=== PATIENT | female | born 1955 | race Caucasian/White ===

== ENCOUNTER 2016-05-05 08:27 | Day surgery (SDC) | payer OTHER ==
[2016-05-05] MEDS ORDERED: DEXTROSE 5%-LACTATED RINGERS 1,000 ML IV ONE ×2 (09:36→10:01)
[2016-05-05] MEDS ORDERED: fentaNYL 250 MCG/5 ML VIAL IVP ONE (09:40)
[2016-05-05] MEDS ORDERED: MIDAZOLAM 2 MG/2 ML VIAL IVP ONE (09:40)
== END 2016-05-05 08:28 | disposition home or self-care (01) ==
PROC: 0DJD8ZZ Inspection of Lower Intestinal Tract, Via Natural or Artificial Opening Endoscopic (ICD-10-PCS; principal; 2016-05-05 10:50)
DX: Z12.11 Encounter for screening for malignant neoplasm of colon (principal); K57.30 Diverticulosis of large intestine without perforation or abscess without bleeding; K64.8 Other hemorrhoids

== ENCOUNTER 2016-05-18 11:21 | Outpatient (CLI) | payer OTHER | END 2016-05-18 11:22 | disposition home or self-care (01) | DX: N28.9 Disorder of kidney and ureter, unspecified (principal) ==

== ENCOUNTER 2017-05-09 08:00 | Outpatient (CLI) | payer OTHER ==
[2017-05-09 12:59] LABS: BASOPHILS % (AUTO) 0.9 %; EOSINOPHILS # (AUTO) 0.8 10^3/uL (0.0-0.7); EOSINOPHILS % (AUTO) 18.5 %; LYMPHOCYTES # (AUTO) 1.1 10^3/uL (1.5-3.5); LYMPHOCYTES % (AUTO) 26.3 %; MEAN CORPUSCULAR HEMOGLOBIN 34.9 pg (27.0-31.0); MEAN CORPUSCULAR HGB CONC 34.6 g/dL (32.0-36.0); MONOCYTES # (AUTO) 0.4 10^3/uL (0.0-1.0); NEUTROPHILS # (AUTO) 1.8 10^3/uL (1.5-6.6); NEUTROPHILS % (AUTO) 44.3 %; PLT - PLATELET COUNT 242 10^3/uL (130-450); RED BLOOD COUNT 3.15 10^6/uL (4.20-5.40); RED CELL DISTRIBUTION WIDTH 14.1 % (12.0-15.0); WHITE BLOOD COUNT 4.2 x10^3/uL (4.8-10.8)
[2017-05-09 13:19] LABS: ALBUMIN 3.8 g/dL (3.2-5.5); ALBUMIN/GLOBULIN RATIO 1.3 (1.0-2.2); ALKALINE PHOSPHATASE 55 IU/L (42-121); ALT ALANINE AMINOTRANSFERASE 12 IU/L (10-60); AST ASPARTATE AMINOTRANSFERASE 25 IU/L (10-42); BILIRUBIN,TOTAL 0.8 mg/dL (0.2-1.0); BUN - BLOOD UREA NITROGEN 17 mg/dL (6-20); CALCIUM 8.6 mg/dL (8.5-10.3); CARBON DIOXIDE - CO2 25 mmol/L (21-32); CHLORIDE 98 mmol/L (101-111); CHOL/HDL RATIO 2.2 (<4.4); CHOLESTEROL 222 mg/dL; CREATININE 1.1 mg/dL (0.4-1.0); GFR - MDRD 50 (>89); GLUCOSE 78 mg/dL (70-100); HDL CHOLESTEROL 102 mg/dL; LDL CHOLESTEROL,CALCULATED 105 mg/dL; SODIUM 130 mmol/L (135-145); TOTAL PROTEIN 6.7 g/dL (6.7-8.2); VLDL CHOLESTEROL 15 mg/dL
[2017-05-09 13:51] LABS: HB2 TOTAL 11.5 g/dL; HEMOGLOBIN A1C 0.35 g/dL; HEMOGLOBIN A1C % 4.9 % (4.6-6.2)
== END 2017-05-09 08:01 | disposition home or self-care (01) ==
LOC: LAB.WCP 08:00
PROVIDERS: ATTEND Family Medicine
DX: N28.9 Disorder of kidney and ureter, unspecified (principal); E03.9 Hypothyroidism, unspecified; E11.9 Type 2 diabetes mellitus without complications; I10 Essential (primary) hypertension
CPT/HCPCS: 36415; 80053; 80061; 82043; 83036; 83721; 84443; 85025

== ENCOUNTER 2017-06-30 10:55 | Outpatient (CLI) | payer OTHER ==
--- NOTE | 2017-07-03 13:00 | Mammography Report ---
DIGITAL SCREENING MAMMOGRAM: 06/30/2017 CLINICAL INDICATION: A 61-year-old for screening. COMPARISON: 03/2016, 01/2015, 04/2013, 11/2010, 10/2009. TECHNIQUE: Routine CC and MLO projections were obtained of the breasts. FINDINGS: Parenchymal tissue within the breasts is predominantly fatty replaced. There are no dominant masses, suspicious microcalcifications, or secondary signs of malignancy. In comparison to the previous studies, there are no significant changes. IMPRESSION: NO MAMMOGRAPHIC EVIDENCE OF MALIGNANCY. NO SIGNIFICANT INTERVAL CHANGES. RECOMMENDATION: Screening mammography is recommended annually. BIRADS CATEGORY 1 - NEGATIVE. STANDARD QUALIFYING STATEMENTS: 1. This examination was reviewed with the aid of Computed-Aided Detection (CAD). 2. A negative or benign imaging report should not delay biopsy if clinically suspicious findings are present. Consider surgical consultation if warranted. More than 5% of cancers are not identified by imaging. 3. Dense breasts may obscure an underlying neoplasm. TD: 07/03/2017 12:59
== END 2017-06-30 10:56 | disposition home or self-care (01) ==
LOC: DI.N 10:55
PROVIDERS: ATTEND Family Medicine
DX: Z12.31 Encounter for screening mammogram for malignant neoplasm of breast (principal)
CPT/HCPCS: 77067

== ENCOUNTER 2018-08-03 08:00 | Outpatient (CLI) | payer OTHER ==
[2018-08-03 18:22] LABS: BASOPHILS % (AUTO) 0.8 %; EOSINOPHILS # (AUTO) 0.4 10^3/uL (0.0-0.7); EOSINOPHILS % (AUTO) 9.7 %; LYMPHOCYTES # (AUTO) 0.9 10^3/uL (1.5-3.5); LYMPHOCYTES % (AUTO) 24.2 %; MEAN CORPUSCULAR HEMOGLOBIN 32.5 pg (27.0-31.0); MEAN CORPUSCULAR HGB CONC 33.1 g/dL (32.0-36.0); MEAN CORPUSCULAR VOLUME 98.1 fL (81.0-99.0); MEAN PLATELET VOLUME 8.8 fL (7.9-10.8); MONOCYTES # (AUTO) 0.3 10^3/uL (0.0-1.0); MONOCYTES % (AUTO) 8.7 %; NEUTROPHILS # (AUTO) 2.1 10^3/uL (1.5-6.6); NEUTROPHILS % (AUTO) 56.6 %; PLT - PLATELET COUNT 234 10^3/uL (130-450); RED BLOOD COUNT 3.38 10^6/uL (4.20-5.40); RED CELL DISTRIBUTION WIDTH 14.4 % (12.0-15.0); WHITE BLOOD COUNT 3.8 x10^3/uL (4.8-10.8)
[2018-08-03 19:07] LABS: % IRON SATURATION 35 % (20-50); ALBUMIN/GLOBULIN RATIO 1.4 (1.0-2.2); ALKALINE PHOSPHATASE 57 IU/L (42-121); ALT ALANINE AMINOTRANSFERASE 13 IU/L (10-60); AST ASPARTATE AMINOTRANSFERASE 22 IU/L (10-42); BILIRUBIN,TOTAL 0.6 mg/dL (0.2-1.0); BUN - BLOOD UREA NITROGEN 31 mg/dL (6-20); CALCIUM 8.7 mg/dL (8.5-10.3); CARBON DIOXIDE - CO2 23 mmol/L (21-32); CHLORIDE 100 mmol/L (101-111); CHOLESTEROL 280 mg/dL; CREATININE 1.1 mg/dL (0.4-1.0); GFR - MDRD 50 (>89); GLUCOSE 94 mg/dL (70-100); HDL CHOLESTEROL 109 mg/dL; IRON 99 ug/dL (28-170); LDL CHOLESTEROL,CALCULATED 146 mg/dL; LDL/HDL RATIO 1.3 (<4.4); SODIUM 131 mmol/L (135-145); TOTAL IRON BINDING CAPACITY 286 ug/dL (250-450); TOTAL PROTEIN 6.9 g/dL (6.7-8.2); TRANSFERRIN 204 mg/dL (192-382); VLDL CHOLESTEROL 25 mg/dL
[2018-08-03 19:08] LABS: CHOL/HDL RATIO 2.6 (<4.4)
== END 2018-08-03 23:59 | disposition home or self-care (01) ==
LOC: LAB.N 08:00
DX: E78.5 Hyperlipidemia, unspecified (principal); D64.9 Anemia, unspecified; I10 Essential (primary) hypertension
CPT/HCPCS: 36415; 80053; 80061; 82607; 82728; 83540; 83721; 84443; 84466; 85025

== ENCOUNTER 2019-02-09 10:20 | Emergency (ER) | payer MEDICARE, OTHER ==
--- NOTE | 2019-02-09 11:24 | XRAY Report ---
Reason: fall Procedure Date: 02/09/2019 Accession Number: [id number] / [id number] Procedure: XR - Ankle 3 View RT CPT Code: Final Report FULL RESULT: EXAM: RIGHT ANKLE RADIOGRAPHY EXAM DATE: 02/09/2019 10:55 AM. CLINICAL HISTORY: Fall. COMPARISON: None. TECHNIQUE: 3 views. FINDINGS: Bones: Transverse lucency at the tip of the right fifth metatarsal tuberosity is noted. Additional lucency noted at the lateral margin of the calcaneus seen only on one image may represent a second fracture. Joints: Normal. No effusion. No subluxations. The ankle mortise is normally aligned. Soft Tissues: Moderate right ankle swelling. IMPRESSION: 1. Transverse myelitis based fracture at the tip of the right fifth metatarsal tuberosity. Possible mildly displaced fracture of the lateral calcaneus. 2. Normal alignment. 3. Moderate right ankle swelling. RADIA
--- NOTE | 2019-02-09 12:10 | ED Physician Documentation ---
PD HPI LOWER EXT INJURY - Stated complaint Stated Complaint: ANKLE/FT PX - Chief complaint Chief Complaint: Ext Problem - History obtained from History obtained from: Patient - History of Present Illness PD HPI LOW EXT INJURY LOCATION: Both (She had a step wrong last night and fell and inverted her right ankle. The right foot hurts the most but she is also having mild pain of the left foot and ankle. 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 : None HEENT: None Psych: Depression Musculoskeletal: None Derm: None - Past Surgical History Past Surgical History: Yes General: Gastric surgery Ortho: Other - Present Medications Home Medications: Ambulatory Orders Medication Instructions Recorded Confirmed Aspirin [Aspir 81] 81 mg PO DAILY 09/28/14 05/05/16 Levothyroxine [Synthroid] 75 mcg PO DAILY 09/28/14 05/05/16 Lisinopril 40 mg PO DAILY 09/28/14 05/05/16 Citalopram [CeleXA] 20 mg PO DAILY 05/04/16 05/04/16 - Allergies Allergies/Adverse Reactions: Allergies Allergy/AdvReac Type Severity Reaction Status Date / Time latex Allergy Respiratory Verified 02/09/19 10:26 zolpidem tartrate * Allergy Rash Verified 02/09/19 10:26 [From Ambien] bandaides Allergy Rash Uncoded 05/05/16 09:29 flu shot AdvReac Dizziness Uncoded 05/05/16 09:29 - Social History Does the pt smoke?: No Smoking Status: Never smoker Does the pt drink ETOH?: Yes Does the pt have substance abuse?: No - Immunizations Immunizations are current?: Yes - POLST Patient has POLST: No PD ED PE NORMAL - Vitals Vital signs reviewed: Yes - General General: Alert and oriented X 3, No acute distress - Extremities Extremities: Other (So the left ankle is actually more swollen and ecchymotic than the right although she has more pain on the right. She is tender over both malleoli on the left and less so the talar dome and fifth metatarsal on the left. She is severely tender over the proximal fifth metatarsal on the right. Noting the x-ray of the right she has absolutely no calcaneal tenderness on the right.) Results - Vitals Vitals: Vital Signs - 24 hr 02/09/19 02/09/19 10:24 12:55 Temperature 36.7 C 36.4 C L Heart Rate 61 59 L Respiratory 20 18 Rate Blood Pressure 127/60 138/71 H O2 Saturation 95 100 Oxygen O2 Source Room air - Rads (name of study) R ankle 3v Radiology: EMP read contemporaneously (There is a little chip fracture of the proximal right fifth metatarsal tuberosity, the radiologist felt there was a possible fracture of the lateral calcaneus but she has absolutely no tenderness here.) L ankle/foot Radiology: EMP read contemporaneously (Possible nondisplaced fracture of the lateral calcaneus, no TTP there) PD MEDICAL DECISION MAKING - ED course ED course: Radiologist reads noted, she has absolutely no tenderness of either calcaneus. She is placed in a boot on the right, did notneed anything on the left. She will use a walker she has at home pending ortho f/u Departure - Departure Disposition: 01 Home, Self Care Clinical Impression: Nondisplaced fracture of fifth right metatarsal bone Qualifiers: Encounter type: initial encounter Fracture type: closed Qualified Code(s): S92.354A - Nondisplaced fracture of fifth metatarsal bone, right foot, initial encounter for closed fracture Closed fracture of left distal fibula Qualifiers: Encounter type: initial encounter Fracture morphology: other fracture Qualified Code(s): S82.832A - Other fracture of upper and lower end of left fibula, initial encounter for closed fracture Condition: Good Record reviewed to determine appropriate education?: Yes Instructions: ED Fx Lower Ext Follow-Up: [facility] [Provider Group] - Within 1 week Comments: As discussed, the radiologist agreed that you have a nondisplaced fracture of the proximal fifth right metatarsal. Wear the boot on that side for this, you can walk and bear weight as tolerated. You should follow-up with the orthopedic surgeon in a week. Radiologist wondered if he might have a calcaneal fracture, but he has absolutely no tenderness of the right calcaneus. There is also a possibility of a tiny fracture of the left lateral calcaneus; you have no tenderness there either. Given that the fracture on the right seems to be bothering you more I think it is okay to walk and bear weight using the walker you have at home and follow-up with orthopedic surgeon in a week. Return for new worsening symptoms. Tylenol as needed for pain. Discharge Date/Time: 02/09/19 13:29
[2019-02-09 12:56] VITALS: BP 138/71
--- NOTE | 2019-02-09 13:06 | XRAY Report ---
Reason: foot ankle inj Procedure Date: 02/09/2019 Accession Number: [id number] / [id number] Procedure: XR - Foot 3 View LT CPT Code: Final Report FULL RESULT: EXAM: LEFT FOOT RADIOGRAPHY EXAM DATE: 02/09/2019 12:32 PM. CLINICAL HISTORY: Foot ankle inj. COMPARISON: ANKLE 3 VIEW LT 02/09/2019 12:25 PM. TECHNIQUE: 3 views. FINDINGS: Bones: Normal. No fractures or bone lesions. Joints: Normal. No subluxations. Soft Tissues: Mild to moderate left mid foot and ankle swelling. IMPRESSION: 1. No fracture or malalignment. 2. Mild to moderate left foot and ankle swelling. 3. If patient remains symptomatic, recommend follow up in 10-14 days. RADIA
--- NOTE | 2019-02-09 13:09 | XRAY Report ---
Reason: foot ankle inj Procedure Date: 02/09/2019 Accession Number: [id number] / [id number] Procedure: XR - Ankle 3 View LT CPT Code: Final Report FULL RESULT: EXAM: LEFT ANKLE RADIOGRAPHY EXAM DATE: 02/09/2019 12:31 PM. CLINICAL HISTORY: Foot ankle inj. COMPARISON: ANKLE 3 VIEW RT 02/09/2019 10:53 AM. TECHNIQUE: 3 views. FINDINGS: Bones: Plantar and Achilles tendon heel spur. Osteopenia. 5 mm linear bony density adjacent to the lateral calcaneus Joints: Osteophyte lateral joint space. No effusion. No subluxations. The ankle mortise is normally aligned. Soft Tissues: Soft tissue swelling. IMPRESSION: Possible fracture lateral calcaneus RADIA
== END 2019-02-09 13:29 | disposition home or self-care (01) ==
LOC: ED 10:20
DX: S92.354A Nondisplaced fracture of fifth metatarsal bone, right foot, initial encounter for closed fracture (principal); X50.1XXA Overexertion from prolonged static or awkward postures, initial encounter; I10 Essential (primary) hypertension; E11.9 Type 2 diabetes mellitus without complications; E03.9 Hypothyroidism, unspecified
CPT/HCPCS: 99282; 99283

== ENCOUNTER 2020-02-06 15:21 | Outpatient (CLI) | payer MEDICARE, OTHER ==
--- NOTE | 2020-02-13 12:23 | Mammography Report ---
BILATERAL DIGITAL SCREENING MAMMOGRAM 3D/2D: 02/06/2020 CLINICAL: Routine screening. Comparison is made to exams dated: 06/30/2017 mammogram, 01/28/2016 mammogram, 01/20/2015 mammogram, 04/24/2013 mammogram, 11/16/2010 mammogram, and 10/23/2009 mammogram - [facility]. The tissue of both breasts is predominantly fatty. There are benign vascular calcifications in both breasts. No significant masses, calcifications, or other findings are seen in either breast. There has been no significant interval change. IMPRESSION: BENIGN There is no mammographic evidence of malignancy. A 1 year screening mammogram is recommended. This exam was interpreted at Station ID: [id number]. NOTE: For mammograms, a report in lay terms will be sent to the patient. Approximately 15% of breast malignancies will not be visualized mammographically. In the management of a palpable breast mass, a negative mammogram must not discourage biopsy of a clinically suspicious lesion. Electronically Signed By: Galo Sequeira M.D. [facility] [place]:02/13/2020 12:16:39 ACR BI-RADS Category 2: Benign Finding(s) 3342F PARENCHYMAL PATTERN: (F) - The breast(s) demonstrate(s) diffuse fatty replacement. BI-RADS CATEGORY: (2) - 2 RECOMMENDATION: (ANNUAL) - Recommend routine annual screening mammography. [id number] 1 year screening LATERALITY: (B)
== END 2020-02-06 15:22 | disposition home or self-care (01) ==
LOC: DI.N 15:21
DX: Z12.31 Encounter for screening mammogram for malignant neoplasm of breast (principal)
CPT/HCPCS: 77063; 77067

== ENCOUNTER 2020-07-08 08:00 | Outpatient (CLI) | payer MEDICARE, OTHER ==
[2020-07-08 18:14] LABS: BASOPHILS % (AUTO) 0.7 %; EOSINOPHILS # (AUTO) 0.5 10^3/uL (0.0-0.7); EOSINOPHILS % (AUTO) 10.8 %; HGB - HEMOGLOBIN 12.9 g/dL (12.0-16.0); LYMPHOCYTES # (AUTO) 0.9 10^3/uL (1.5-3.5); MEAN CORPUSCULAR HEMOGLOBIN 32.9 pg (27.0-31.0); MEAN CORPUSCULAR HGB CONC 32.3 g/dL (32.0-36.0); MEAN PLATELET VOLUME 10.3 fL (7.9-10.8); MONOCYTES # (AUTO) 0.4 10^3/uL (0.0-1.0); MONOCYTES % (AUTO) 9.8 %; NEUTROPHILS # (AUTO) 2.4 10^3/uL (1.5-6.6); NEUTROPHILS % (AUTO) 56.5 %; PLT - PLATELET COUNT 261 10^3/uL (130-450); RED BLOOD COUNT 3.92 10^6/uL (4.20-5.40); RED CELL DISTRIBUTION WIDTH 12.4 % (12.0-15.0); WHITE BLOOD COUNT 4.2 x10^3/uL (4.8-10.8)
[2020-07-08 18:54] LABS: THYROID STIMULATING HORMONE 10.5 uIU/mL (0.34-5.60)
[2020-07-08 18:57] LABS: % IRON SATURATION 37 % (20-50); ALBUMIN 3.9 g/dL (3.2-5.5); ALBUMIN/GLOBULIN RATIO 1.3 (1.0-2.2); ALKALINE PHOSPHATASE 68 IU/L (42-121); ALT ALANINE AMINOTRANSFERASE 13 IU/L (10-60); AST ASPARTATE AMINOTRANSFERASE 24 IU/L (10-42); BILIRUBIN,TOTAL 0.8 mg/dL (0.2-1.0); BUN - BLOOD UREA NITROGEN 23 mg/dL (6-20); CALCIUM 9.3 mg/dL (8.5-10.3); CARBON DIOXIDE - CO2 27 mmol/L (21-32); CHLORIDE 101 mmol/L (101-111); CHOL/HDL RATIO 2.4 (<4.4); CHOLESTEROL 247 mg/dL; CREATININE 1.1 mg/dL (0.4-1.0); GFR - MDRD 50 (>89); GLUCOSE 103 mg/dL (70-100); HDL CHOLESTEROL 105 mg/dL; IRON 119 ug/dL (28-170); LDL CHOLESTEROL,CALCULATED 123 mg/dL; LDL/HDL RATIO 1.2 (<4.4); POTASSIUM 4.1 mmol/L (3.5-5.0); SODIUM 135 mmol/L (135-145); TOTAL IRON BINDING CAPACITY 321 ug/dL (250-450); TOTAL PROTEIN 6.8 g/dL (6.7-8.2); TRANSFERRIN 229 mg/dL (192-382); TRIGLYCERIDES 96 mg/dL; VLDL CHOLESTEROL 19 mg/dL
[2020-07-08 19:01] LABS: FERRITIN 101.8 ng/mL (11.0-306.8)
[2020-07-08 19:05] LABS: FOLATE 6.71 ng/mL (5.90 - >24.8)
[2020-07-08 20:13] LABS: FREE T4 (FREE THYROXINE) 0.64 ng/dL (0.58-1.64)
[2020-07-09 11:52] LABS: HEPATITIS C ANTIBODY NON-REACTIVE (NON-REACTIVE)
== END 2020-07-08 23:59 | disposition home or self-care (01) ==
LOC: LAB.WCP 08:00
PROVIDERS: ATTEND Family Medicine
DX: Z01.84 Encounter for antibody response examination (principal); I10 Essential (primary) hypertension; E78.5 Hyperlipidemia, unspecified; D64.9 Anemia, unspecified; E03.9 Hypothyroidism, unspecified
CPT/HCPCS: 36415; 80053; 80061; 82607; 82728; 82746; 83540; 83721; 84439; 84443; 84466; 85025; 86803

== ENCOUNTER 2021-01-26 12:08 | Outpatient (CLI) | payer MEDICARE, OTHER ==
[2021-01-26 18:27] LABS: ALBUMIN 4.1 g/dL (3.2-5.5); ALBUMIN/GLOBULIN RATIO 1.5 (1.0-2.2); BILIRUBIN,TOTAL 0.6 mg/dL (0.2-1.0); CREATININE 1.1 mg/dL (0.4-1.0); POTASSIUM 5.1 mmol/L (3.5-5.0); TOTAL PROTEIN 6.9 g/dL (6.7-8.2)
[2021-01-26 21:33] LABS: BASOPHILS % (AUTO) 0.5 %; EOSINOPHILS # (AUTO) 0.3 10^3/uL (0.0-0.7); EOSINOPHILS % (AUTO) 8.4 %; HCT - HEMATOCRIT 35.8 % (37.0-47.0); HGB - HEMOGLOBIN 11.5 g/dL (12.0-16.0); LYMPHOCYTES # (AUTO) 1.3 10^3/uL (1.5-3.5); LYMPHOCYTES % (AUTO) 32.7 %; MEAN CORPUSCULAR HEMOGLOBIN 33.4 pg (27.0-31.0); MEAN CORPUSCULAR HGB CONC 32.1 g/dL (32.0-36.0); MEAN CORPUSCULAR VOLUME 104.1 fL (81.0-99.0); MEAN PLATELET VOLUME 10.5 fL (7.9-10.8); MONOCYTES # (AUTO) 0.3 10^3/uL (0.0-1.0); MONOCYTES % (AUTO) 6.4 %; NEUTROPHILS % (AUTO) 51.5 %; PLT - PLATELET COUNT 263 10^3/uL (130-450); RED BLOOD COUNT 3.44 10^6/uL (4.20-5.40); RED CELL DISTRIBUTION WIDTH 12.6 % (12.0-15.0); WHITE BLOOD COUNT 3.9 x10^3/uL (4.8-10.8)
[2021-01-26 21:35] LABS: INR 0.9 (0.8-1.2); PT - PROTHROMBIN TIME 10.4 secs (9.9-12.6)
== END 2021-01-26 23:59 | disposition home or self-care (01) ==
LOC: LAB.WCP 12:08
PROVIDERS: ATTEND Family Medicine
DX: Z72.89 Other problems related to lifestyle (principal); I10 Essential (primary) hypertension
CPT/HCPCS: 36415; 80053; 82977; 83735; 85025; 85610

== ENCOUNTER 2021-08-26 12:56 | Outpatient (CLI) | payer MEDICARE, OTHER ==
--- NOTE | 2021-08-26 14:56 | DEXA Report ---
PROCEDURE: Dexa Spine and/or Hip INDICATIONS: POST MENOPAUSAL TECHNIQUE: Dual energy x-ray absorptiometry (DXA) was performed on a [employer] System. Regions measur ed are the AP Spine, femoral neck, and if needed forearm. COMPARISON: 03/29/2016 FINDINGS: Lumbar Spine: Bone Mineral Density 1.542 g/cm/cm,T score 3.0, normal, change from previous -0.2% Left Hip: Bone Mineral Density 1.0-3 g/cm/cm,T score 0.1, normal, change from previous -9.9%, significant Left Femoral Neck: Bone Mineral Density 0.979 g/cm/cm, T score -0.4, normal (T score greater or equal to -1.0: NORMAL) (T score from -1.1 to -2.4: OSTEOPENIA) (T score less than or equal to -2.5 to: OSTEOPOROSIS) Impression: 1. With normal bone mineral density, the patient is not at elevated risk of fracture. 2. There has been interval significant decrease in bone mineral density in the left hip compared to t he prior study. Patients with diagnosis of osteoporosis or osteopenia should have regular bone mineral density assess ment. For those eligible for Medicare, routine testing is allowed once every 2 years. Testing frequ ency can be increased for patients who have rapidly progressing disease or for those who are receivin g medical therapy to restore bone mass. Reviewed by: Jonna Ferguson MD on 08/26/2021 2:54 PM PDT Approved by: Jonna Ferguson MD on 08/26/2021 2:54 PM PDT Station ID: [id number]
== END 2021-08-26 12:57 | disposition home or self-care (01) ==
LOC: DI 12:56
PROVIDERS: ATTEND Physician Assistant
DX: Z78.0 Asymptomatic menopausal state (principal)

== ENCOUNTER 2022-02-03 11:12 | Outpatient (CLI) | payer MEDICARE, OTHER ==
--- NOTE | 2022-02-04 10:20 | Mammography Report ---
BILATERAL DIGITAL SCREENING MAMMOGRAM 3D/2D: 02/03/2022 CLINICAL: Routine screening. Comparison is made to exams dated: 02/06/2020 mammogram, 06/30/2017 mammogram, 01/28/2016 mammogram, 01/20/2015 mammogram, 04/24/2013 mammogram, and 11/16/2010 mammogram - [facility]. Both breasts are almost entirely fatty (category a/<25% glandular tissue). There are benign vascular calcifications in both breasts. No significant masses, calcifications, or other findings are seen in either breast. There has been no significant interval change. IMPRESSION: BENIGN There is no mammographic evidence of malignancy. A 1 year screening mammogram is recommended. Based on the Tyrer Cuzick model (a risk assessment model) the patients lifetime risk is 2.8% and her 10 year risk is 1.6%. According to the ACR, ACS, and NCCN guidelines, an annual breast MRI exam johnny g with mammogram is recommended if the patients lifetime risk is 20% or greater. This exam was interpreted at Station ID: [id number]. NOTE: For mammograms, a report in lay terms will be sent to the patient. Approximately 15% of breast malignancies will not be visualized mammographically. In the management of a palpable breast mass, a negative mammogram must not discourage biopsy of a clinically suspicious lesion. Electronically Signed By: Gregory Suárez M.D. [facility]/[email or web address]:02/03/2022 22:08:01 ACR BI-RADS Category 2: Benign Finding(s) 3342F PARENCHYMAL PATTERN: (F) - The breast(s) demonstrate(s) diffuse fatty replacement. BI-RADS CATEGORY: (2) - 2 RECOMMENDATION: (ANNUAL) - Recommend routine annual screening mammography. [id number] 1 year screening LATERALITY: (B)
== END 2022-02-03 11:13 | disposition home or self-care (01) ==
LOC: DI.N 11:12
PROVIDERS: ATTEND Physician Assistant
DX: Z12.31 Encounter for screening mammogram for malignant neoplasm of breast (principal)

== ENCOUNTER 2022-12-02 15:27 | Outpatient (CLI) | payer MEDICARE, OTHER ==
--- NOTE | 2022-12-02 17:20 | XRAY Report ---
PROCEDURE: Shoulder 3 View LT INDICATIONS: OTHER SPRAIN OF LEFT SHOULDER JOINT INITIAL TECHNIQUE: 3 views of the shoulder were acquired. COMPARISON: None. FINDINGS: Bones: No fractures or dislocations. No suspicious bony lesions. Visualized ribs appear intact. Mi ld periventricular osteoarthritic changes. Soft tissues: No suspicious soft tissue calcifications. IMPRESSION: No acute bony abnormality. If pain persists with conservative management, consider repeat radiographs in 10-14 days or cross-sectional imaging. Reviewed by: Anirudh Andrade MD on 12/02/2022 5:19 PM PDT Approved by: Anirudh Andrade MD on 12/02/2022 5:19 PM PDT Station ID: [id number]
--- NOTE | 2022-12-02 18:19 | XRAY Report ---
PROCEDURE: Humerus LT INDICATIONS: OTHER SPRAIN OF LEFT SHOULDER JOINT INITIAL TECHNIQUE: 2 views of the humerus were acquired. COMPARISON: None. FINDINGS: Bones: No fractures or dislocations. No suspicious bony lesions. Soft tissues: No suspicious soft tissue calcifications or masses. IMPRESSION: No acute bony abnormality Reviewed by: Yemi Lipscomb MD on 12/02/2022 6:18 PM PDT Approved by: Yemi Lipscomb MD on 12/02/2022 6:18 PM PDT Station ID: [id number]
== END 2022-12-02 15:28 | disposition home or self-care (01) ==
LOC: DI 15:27
PROVIDERS: ATTEND Registered Nurse
DX: S43.492A Other sprain of left shoulder joint, initial encounter (principal)

== ENCOUNTER 2023-01-12 11:37 | Outpatient (CLI) | payer MEDICARE, OTHER ==
[2023-01-12 17:43] LABS: BASOPHILS % (AUTO) 0.6 %; EOSINOPHILS # (AUTO) 0.4 10^3/uL (0.0-0.7); EOSINOPHILS % (AUTO) 7.6 %; HCT - HEMATOCRIT 36.9 % (37.0-47.0); HGB - HEMOGLOBIN 11.9 g/dL (12.0-16.0); LYMPHOCYTES # (AUTO) 1.3 10^3/uL (1.5-3.5); LYMPHOCYTES % (AUTO) 26.2 %; MEAN CORPUSCULAR HEMOGLOBIN 33.5 pg (27.0-31.0); MEAN CORPUSCULAR HGB CONC 32.2 g/dL (32.0-36.0); MEAN CORPUSCULAR VOLUME 103.9 fL (81.0-99.0); MEAN PLATELET VOLUME 10.3 fL (7.9-10.8); MONOCYTES # (AUTO) 0.4 10^3/uL (0.0-1.0); MONOCYTES % (AUTO) 8.5 %; NEUTROPHILS # (AUTO) 2.8 10^3/uL (1.5-6.6); NEUTROPHILS % (AUTO) 56.7 %; PLT - PLATELET COUNT 247 10^3/uL (130-450); RED BLOOD COUNT 3.55 10^6/uL (4.20-5.40); RED CELL DISTRIBUTION WIDTH 13.1 % (12.0-15.0)
[2023-01-12 18:04] LABS: ALBUMIN 4.3 g/dL (3.2-5.5); ALBUMIN/GLOBULIN RATIO 1.7 (1.0-2.2); ALKALINE PHOSPHATASE 70 IU/L (42-121); ALT ALANINE AMINOTRANSFERASE 8 IU/L (10-60); AST ASPARTATE AMINOTRANSFERASE 18 IU/L (10-42); BILIRUBIN,TOTAL 0.6 mg/dL (0.2-1.0); BUN - BLOOD UREA NITROGEN 34 mg/dL (6-20); CALCIUM 9.3 mg/dL (8.5-10.3); CARBON DIOXIDE - CO2 24 mmol/L (21-32); CHLORIDE 104 mmol/L (101-111); CHOL/HDL RATIO 2.3 (<4.4); CHOLESTEROL 256 mg/dL; CREATININE 1.3 mg/dL (0.6-1.3); GFR - MDRD 41 (>89); GLUCOSE 125 mg/dL (74-104); HDL CHOLESTEROL 111 mg/dL; LDL CHOLESTEROL,CALCULATED 127 mg/dL; LDL/HDL RATIO 1.1 (<4.4); POTASSIUM 4.6 mmol/L (3.5-4.5); SODIUM 136 mmol/L (135-145); TOTAL PROTEIN 6.9 g/dL (6.4-8.9); TRIGLYCERIDES 92 mg/dL (48-352); VLDL CHOLESTEROL 18 mg/dL
[2023-01-12 18:13] LABS: THYROID STIMULATING HORMONE 6.15 uIU/mL (0.34-5.60)
[2023-01-12 18:35] LABS: ESTIMATED AVERAGE GLUCOSE 108 mg/dL (70-100); HEMOGLOBIN A1c% 5.4 % (4.27-6.07)
== END 2023-01-12 11:38 | disposition home or self-care (01) ==
LOC: LAB.N 11:37
PROVIDERS: ATTEND Physician Assistant
DX: I10 Essential (primary) hypertension (principal); E78.5 Hyperlipidemia, unspecified; R73.01 Impaired fasting glucose; E03.9 Hypothyroidism, unspecified
CPT/HCPCS: 36415; 80053; 80061; 83036; 83721; 84439; 84443; 85025

== ENCOUNTER 2024-01-01 09:43 | Outpatient (CLI) | payer MEDICARE, OTHER ==
[2024-01-01 12:18] LABS: BASOPHILS % (AUTO) 0.5 %; EOSINOPHILS # (AUTO) 0.2 10^3/uL (0.0-0.7); EOSINOPHILS % (AUTO) 5.5 %; HCT - HEMATOCRIT 33.4 % (37.0-47.0); HGB - HEMOGLOBIN 10.7 g/dL (12.0-16.0); LYMPHOCYTES # (AUTO) 1.2 10^3/uL (1.5-3.5); LYMPHOCYTES % (AUTO) 29.4 %; MEAN CORPUSCULAR HEMOGLOBIN 33.6 pg (27.0-31.0); MEAN PLATELET VOLUME 10.3 fL (7.9-10.8); MONOCYTES # (AUTO) 0.5 10^3/uL (0.0-1.0); MONOCYTES % (AUTO) 11.2 %; NEUTROPHILS # (AUTO) 2.1 10^3/uL (1.5-6.6); NEUTROPHILS % (AUTO) 53.2 %; PLT - PLATELET COUNT 204 10^3/uL (130-450); RED BLOOD COUNT 3.18 10^6/uL (4.20-5.40)
[2024-01-01 12:31] LABS: ALBUMIN 4.2 g/dL (3.2-5.5); ALBUMIN/GLOBULIN RATIO 1.8 (1.0-2.2); ALKALINE PHOSPHATASE 60 IU/L (42-121); ALT ALANINE AMINOTRANSFERASE 15 IU/L (10-60); AST ASPARTATE AMINOTRANSFERASE 31 IU/L (10-42); BILIRUBIN,TOTAL 0.9 mg/dL (0.2-1.0); BUN - BLOOD UREA NITROGEN 34 mg/dL (6-20); CARBON DIOXIDE - CO2 29 mmol/L (21-32); CHLORIDE 96 mmol/L (101-111); CHOL/HDL RATIO 2.1 (<4.4); CHOLESTEROL 260 mg/dL; CREATININE 1.3 mg/dL (0.6-1.3); ESTIMATED AVERAGE GLUCOSE 97 mg/dL (70-100); GFR - MDRD 40 (>89); GLUCOSE 146 mg/dL (74-104); HDL CHOLESTEROL 126 mg/dL; LDL CHOLESTEROL,CALCULATED 116 mg/dL; LDL/HDL RATIO 0.9 (<4.4); POTASSIUM 4.3 mmol/L (3.5-4.5); SODIUM 132 mmol/L (135-145); TOTAL PROTEIN 6.6 g/dL (6.4-8.9); TRIGLYCERIDES 89 mg/dL; VLDL CHOLESTEROL 18 mg/dL
[2024-01-01 12:40] LABS: THYROID STIMULATING HORMONE 14.75 uIU/mL (0.34-5.60)
== END 2024-01-01 09:44 | disposition home or self-care (01) ==
LOC: LAB.N 09:43
PROVIDERS: ATTEND Physician Assistant
DX: I10 Essential (primary) hypertension (principal); E78.5 Hyperlipidemia, unspecified; R73.01 Impaired fasting glucose; E03.9 Hypothyroidism, unspecified
CPT/HCPCS: 36415; 80053; 80061; 83036; 83721; 84439; 84443; 85025

== ENCOUNTER 2024-01-02 09:14 | Emergency (ER) | payer MEDICARE, OTHER ==
--- NOTE | 2024-01-02 09:41 | ED Physician Documentation ---
PD HPI SYNCOPE - Stated complaint Stated Complaint: GLF,HEAD INJ - History obtained from History obtained from: Patient - Additional information Additional information: 68-year-old woman who is relatively healthy with history of hypertension and hypothyroidism. She was sitting on the toilet today and without premonition had syncopal episode hitting her head on the ground with a forehead laceration. She is not sure how long she was unconscious for. Does not feel injured other than the forehead laceration. She said she syncopized once in the past with food poisoning but has not been ill. No associated chest pain. No heart problems. 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 : None HEENT: None Psych: Depression Musculoskeletal: None Derm: None - Past Surgical History Past Surgical History: Yes General: Gastric surgery Ortho: Other - Present Medications Home Medications: Ambulatory Orders Medication Instructions Recorded Confirmed Aspirin [Aspir 81] 81 mg PO DAILY 09/28/14 05/05/16 Levothyroxine [Synthroid] 75 mcg PO DAILY 09/28/14 05/05/16 lisinopriL [Lisinopril] 40 mg PO DAILY 09/28/14 05/05/16 Citalopram [CeleXA] 20 mg PO DAILY 05/04/16 05/04/16 - Allergies Allergies/Adverse Reactions: Allergies Allergy/AdvReac Type Severity Reaction Status Date / Time latex Allergy Respiratory Verified 01/02/24 09:46 zolpidem tartrate * Allergy Rash Verified 01/02/24 09:46 [From Ambien] bandaides Allergy Rash Uncoded 01/02/24 09:46 flu shot AdvReac Dizziness Uncoded 01/02/24 09:46 - Social History Does the pt smoke?: No Smoking Status: Never smoker Does the pt drink ETOH?: Yes Does the pt have substance abuse?: No - Immunizations Immunizations are current?: Yes - POLST Patient has POLST: No PD ED PE NORMAL - Vitals Vital signs reviewed: Yes - General General: Alert and oriented X 3, No acute distress - HEENT HEENT: PERRL, EOMI, Other (6 cm jagged laceration to the middle and left side of the forehead. There is developing ecchymosis over the left forehead and periorbital area. No facial bony tenderness.) - Neck Neck: No bony TTP - Cardiac Cardiac: RRR, No murmur - Respiratory Respiratory: No respiratory distress, Clear bilaterally - Abdomen Abdomen: Non tender - Extremities Extremities: No deformity, No tenderness to palpate, Normal ROM s pain - Neuro Neuro: Alert and oriented X 3 Eye Opening: Spontaneous Motor: Obeys Commands Verbal: Oriented GCS Score: 15 - Psych Psych: Normal mood, Normal affect Results - Vitals Vitals: Vital Signs - 24 hr 01/02/24 09:37 Temperature 36.6 C Heart Rate 71 Respiratory 15 Rate Blood Pressure 131/86 H O2 Saturation 100 Oxygen O2 Source Room air - EKG (time done) 0926 EKG releavant findings:: EKG personally interpreted by author of this note. Relevant findings are: Rate: Rate (enter#) (63) Rhythm: NSR [place]: LAD Intervals: Normal HI QRS: Low voltage Ischemia: Normal ST segments - Labs Labs: Laboratory Tests 01/02/24 01/02/24 09:47 09:47 WBC 4.9 RBC 3.29 L Hgb 11.1 L Hct 34.1 L MCV 103.6 H MCH 33.7 H MCHC 32.6 RDW 13.8 Plt Count 199 MPV 10.1 Neut # (Auto) 3.1 Lymph # (Auto) 1.2 L [place] # (Auto) 0.4 Eos # (Auto) 0.2 Baso # (Auto) 0.0 Absolute Nucleated RBC 0.00 Nucleated RBC % 0.0 Sodium 132 L Potassium 4.3 Chloride 96 L Carbon Dioxide 27 Anion Gap 9.0 BUN 27 H Creatinine 1.1 Estimated GFR (MDRD) 49 L Glucose 119 H Calcium 9.1 Total Bilirubin 0.4 AST 42 ALT 17 Alkaline Phosphatase 58 Troponin I High Sens 4.2 Total Protein 7.1 Albumin 4.4 Globulin 2.7 Albumin/Globulin Ratio 1.6 Procedures - Laceration (location) L forehead Length in cm: 5 Wound type: Curved, Stellate Anesthesia: Lidocaine 1% with epi Wound preparation: Irrigated copiously NS Skin layer closure: Prolene, Interrupted, Size #-0 - enter number (6-0), Sutures - enter # (12) Other: Patient tolerated well, No complications, Neurovascular intact, Tetanus booster given PD Medical Decision Making - ED course ED course: 68-year-old woman with syncope. There was no premonition which to me is always concerning for an arrhythmia. Her workup in the emergency but her apartment demonstrates mild anemia, macrocytic, mild hyponatremia on CMP. She remained without ectopy on the monitor here. The large wound on her head was closed and CT imaging of the head and neck were without pertinent positive findings. I offered and recommended observation to evaluate for cardiac syncope but the patient declined and she understands there is a small risk of given the history. Departure - Departure Disposition: 01 Home, Self Care Clinical Impression: Syncope Qualifiers: Syncope type: unspecified Qualified Code(s): R55 - Syncope and collapse Head injury Qualifiers: Encounter type: initial encounter Qualified Code(s): S09.90XA - Unspecified injury of head, initial encounter Facial laceration Qualifiers: Encounter type: initial encounter Qualified Code(s): S01.81XA - Laceration without foreign body of other part of head, initial encounter Condition: Good Instructions: ED Laceration Facial Sutr Tape, ED Fainting Unkn Cause Comments: Come back for any signs of infection which would include: Redness, swelling, drainage, increased pain, or fevers. You can wash it soap and water. Keep it covered and moist with bacitracin ointment which is available over the counter; avoid neosporin. Follow-up with your physician in 7 days for suture removal.
[2024-01-02] MEDS: LIDOCAINE 1%-EPI 1:100000 20 ML MDV SUBQ STA (09:51)
[2024-01-02] MEDS: TETANUS/DIPHTHERIA/PERTUSSIS 0.5 ML SYRINGE IM ONE (09:51)
[2024-01-02 09:52] LABS: BASOPHILS % (AUTO) 0.4 %; EOSINOPHILS # (AUTO) 0.2 10^3/uL (0.0-0.7); EOSINOPHILS % (AUTO) 3.6 %; HCT - HEMATOCRIT 34.1 % (37.0-47.0); HGB - HEMOGLOBIN 11.1 g/dL (12.0-16.0); LYMPHOCYTES # (AUTO) 1.2 10^3/uL (1.5-3.5); LYMPHOCYTES % (AUTO) 23.7 %; MEAN CORPUSCULAR HEMOGLOBIN 33.7 pg (27.0-31.0); MEAN CORPUSCULAR HGB CONC 32.6 g/dL (32.0-36.0); MEAN CORPUSCULAR VOLUME 103.6 fL (81.0-99.0); MEAN PLATELET VOLUME 10.1 fL (7.9-10.8); MONOCYTES # (AUTO) 0.4 10^3/uL (0.0-1.0); MONOCYTES % (AUTO) 8.3 %; NEUTROPHILS # (AUTO) 3.1 10^3/uL (1.5-6.6); NEUTROPHILS % (AUTO) 63.6 %; PLT - PLATELET COUNT 199 10^3/uL (130-450); RED BLOOD COUNT 3.29 10^6/uL (4.20-5.40); RED CELL DISTRIBUTION WIDTH 13.8 % (12.0-15.0); WHITE BLOOD COUNT 4.9 x10^3/uL (4.8-10.8)
[2024-01-02 09:58] VITALS: O2SAT 100
[2024-01-02 10:12] LABS: TROPONIN I HIGH SENSITIVITY 4.2 ng/L (2.3-14.8)
[2024-01-02 10:16] LABS: ALBUMIN 4.4 g/dL (3.2-5.5); ALBUMIN/GLOBULIN RATIO 1.6 (1.0-2.2); BILIRUBIN,TOTAL 0.4 mg/dL (0.2-1.0); CALCIUM 9.1 mg/dL (8.5-10.3); CREATININE 1.1 mg/dL (0.6-1.3); POTASSIUM 4.3 mmol/L (3.5-4.5); TOTAL PROTEIN 7.1 g/dL (6.4-8.9)
--- NOTE | 2024-01-02 11:31 | CT Report ---
PROCEDURE: Cervical Spine WO INDICATIONS: head inj TECHNIQUE: Noncontrast 3 mm thick sections acquired from the skull base to the T4 level. Sagittal and coronal r eformats were then constructed. For radiation dose reduction, the following was used: automated exp osure control, adjustment of mA and/or kV according to patient size. COMPARISON: None. FINDINGS: Image quality: Excellent. Bones: There is 3 mm anterolisthesis of C2 on C3, C4 on C5 and C5 on C6. 3 mm anterolisthesis of C7 on T1 is also seen. Degenerative endplate changes and bilateral uncovertebral hypertrophic changes ar e noted throughout cervical spine causing ggpt-ci-otkuthkj central canal stenosis and bilateral neura l foraminal narrowing most notably at C5-6 and C6-7 levels. No acute fracture or dislocation. Visuali zed superior ribs are intact. Soft tissues: Prevertebral soft tissues are normal in thickness. No paravertebral hematomas. No ap ical pneumothoraces. IMPRESSION: No acute, displaced fracture or traumatic subluxation. Degenerative disc disease throughout cervical spine with likely degenerative anterolisthesis as above . Reviewed by: Hemal Magallon MD on 01/02/2024 11:30 AM PDT Approved by: Hemal Magallon MD on 01/02/2024 11:30 AM PDT Station ID: [id number]
--- NOTE | 2024-01-02 11:32 | CT Report ---
PROCEDURE: Head WO INDICATIONS: head inj TECHNIQUE: Noncontrast 4.5 mm thick angled axial sections acquired from the foramen magnum to the vertex. For r adiation dose reduction, the following was used: automated exposure control, adjustment of mA and/or kV according to patient size. COMPARISON: None FINDINGS: Image quality: Excellent. CSF spaces: Basal cisterns are patent. No extra-axial fluid collections. The ventricles are symmet khalida in size and shape. Brain: No intracranial bleeds or masses. There is cerebral volume loss for age, with resultant vent ricular and sulcal prominence. There are periventricular and deep white matter chronic small vessel ischemic changes. There is intracranial internal carotid artery atherosclerosis. Skull and face: Calvarium and visualized facial bones appear intact, without suspicious lesions. Sinuses: Visualized sinuses and mastoids are clear. IMPRESSION: No acute intracranial pathology. Age-related volume loss and mild white matter small vessel chronic ischemic changes. Reviewed by: Hemal Magallon MD on 01/02/2024 11:31 AM PDT Approved by: Hemal Magallon MD on 01/02/2024 11:31 AM PDT Station ID: [id number]
[2024-01-02 12:23] VITALS: BP 148/77
== END 2024-01-02 12:23 | disposition home or self-care (01) ==
LOC: ED 09:14
DX: R55 Syncope and collapse (principal); S01.81XA Laceration without foreign body of other part of head, initial encounter; S09.90XA Unspecified injury of head, initial encounter; W18.12XA Fall from or off toilet with subsequent striking against object, initial encounter; Y93.E8 Activity, other personal hygiene; Y92.002 Bathroom of unspecified non-institutional (private) residence as the place of occurrence of the external cause
CPT/HCPCS: 12013; 36415; 80053; 84484; 85025; 90471; 93005; 99284